=== PATIENT | female | born 1940 | race Caucasian/White ===

== ENCOUNTER 2018-02-17 22:35 | Inpatient (IN) | payer OTHER ==
[~2018-02-17] VITALS: Ht 157.5 cm; Wt 68.5 kg
[~2018-02-17 22:35] MED LIST: ARICEPT 5 MG TAB5 MG PO; ASPIRIN EC81 M1 PO; GLUCOPHAGE1000 MG PO; GLUCOTROL10 MG PO; LANTUS SUBQ; LEVAQUIN 500 M500 M2 PO; LEVAQUIN 500 M500 MG PO; LOPRESSOR25 PO; MOBIC15 MG PO; NORCO 5-325 TA1 EACH PO; PRAVACHOL 20 MG20 M1 PO; TOPROL XL50 MG PO; TRIAMTERENE-HC1 EAC1 PO
[2018-02-17 22:38] VITALS: BP 115/67
[2018-02-17 22:56] LABS: ABSOLUTE BASOPHILS 0.1 thou/uL (0.0-0.2); ABSOLUTE EOSINOPHILS 0.2 thou/uL (0.0-0.7); ABSOLUTE LYMPHOCYTES 2.4 thou/uL (0.8-5.3); ABSOLUTE MONOCYTES 0.8 thou/uL (0.0-1.2); ABSOLUTE NEUTROPHILS 8.5 thou/uL (1.6-8.1); BASOPHILS 0.9 %; EOSINOPHILS 1.3 %; HEMOGLOBIN 13.9 gm/dL (12.0-15.0); LYMPHOCYTES 19.7 %; MCH 28.6 pg (26.0-34.0); MCHC 33.1 g/dL (28.0-37.0); MCV 86.3 fL (80.0-100.0); MPV 9.3 fl. (7.2-11.1); NUCLEATED RBCS 0 /100WBC; PLATELET COUNT* 200 thou/uL (150-400); POLYS 71.1 %; RBC 4.87 mil/uL (4.20-5.00); RDW-CV 15.7 % (10.5-14.5)
[2018-02-17 23:07] LABS: APTT 23.2 Seconds (25.0-31.3); PROTIME 10.2 Seconds (9.20-11.50)
[2018-02-17 23:12] LABS: ANION GAP 12 mmol/L (7-16); BUN 35 mg/dL (7-18); CHLORIDE 98 mmol/L (98-107); CO2 25 mmol/L (21-32); CREATININE 1.8 mg/dL (0.6-1.3); GLUCOSE 415 mg/dL (70-99); POTASSIUM 4.9 mmol/L (3.5-5.1); SODIUM 135 mmol/L (136-145)
[2018-02-17 23:16] LABS: ALBUMIN 3.3 g/dL (3.4-5.0); ALKALINE PHOSPHATASE 99 U/L (46-116); SGOT 20 U/L (15-37); SGPT 22 U/L (30-65); TOTAL BILIRUBIN 0.6 mg/dL (<0.1-1.0); TOTAL PROTEIN 7.7 g/dL (6.4-8.2); TROPONIN-I LEVEL <0.06 ng/mL (<0.06)
[2018-02-17 23:45] LABS: URINE BILIRUBIN NEGATIVE (Negative); URINE BLOOD 3+ (Negative); URINE CLARITY CLEAR; URINE COLOR YELLOW; URINE GLUCOSE-RANDOM 3+ (Negative); URINE KETONES NEGATIVE (Negative); URINE LEUKOCYTES-REFLEX 1+ (Negative); URINE NITRITE-REFLEX NEGATIVE (Negative); URINE PROTEIN TRACE (Negative); URINE UROBILINOGEN 0.2 E.U./dl (0.2-1.0)
[2018-02-17 23:52] LABS: BACTERIA-REFLEX >30 Many /HPF (None Seen); CASTS None Seen /LPF (None Seen); CRYSTALS None Seen /LPF (None Seen); MUCUS 4-6 Moderate strn/LPF (None Seen); SQUAMOUS 0-3 Few /LPF (0-3); TRANSITIONAL EPITHEL CELL 0-3 Few /LPF (None Seen); URINE RBC >20 Many /HPF (0-2); URINE WBC-REFLEX >25 Many /HPF (0-5); WBC CLUMPS Moderate (None Seen)
[2018-02-18 01:06] VITALS: BP 141/78
[2018-02-18 03:05] VITALS: BP 137/68
[2018-02-18] MEDS ORDERED: LANTUS100 UNIT/M SUBQ (03:35)
[2018-02-18] MEDS ORDERED: LIPITOR10 MG PO (03:36)
[2018-02-18] MEDS ORDERED: ZOLOFT50 MG PO (03:36)
--- NOTE | 2018-02-18 05:34 | NUR ---
PT ADMITTED TO UNIT FROM ED. PT ORIENTED TO ROOM, CALL LIGHT SHOWN, FALL AGREEMENT SIGNED. PT STATED UNDERSTANDING. ASSESSMENT DOCUMENTED. MEDS GIVEN PER E-MAR. MED LIST UPDATED. WOUNDS CLEANED, PICTURED TAKEN. NEW IV STARTED PER PT AND PT'S DAUGHTERS REQUEST. PT'S DAUGHTER ASKING ABOUT REHAB FOR PATIENT UNTIL PT COULD GO TO LIVING IN AN APARTMENT WITH ASSISTANCE. PT REPORTS PAIN IN HER LEFT KNEE, IBPROFEN GIVEN WITH RELIEF. PT A&OX4 BUT FORGETFUL. WILL CONTINUE WITH PLAN OF CARE.
[2018-02-18 08:45] VITALS: BP 128/78
--- NOTE | 2018-02-18 11:33 | EKG ---
[place] [address] ELECTROCARDIOGRAM REPORT Name: JEANINE ANDRADE Room: [address] ADM IN .R.#: [id number] Admission: 02/17/18 Attend Phys: Lizy Malcolm MD Discharge: Date of : 40 Report #: [id number] THIS REPORT FOR: //name// [facility] ED Test Date: 2018-02-17 Test Time: 23:20:19 Pat Name: JEANINE TRACYJAYDE Department: Room: [facility] Gender: F Mailroom Manager: TLD : 1940 Requested By: Christiano Murry Order Number: [id number] MD: Luc Wong Measurements Intervals [place] Rate: 75 P: 19 LA: 192 QRS: -53 QRSD: 136 T: 69 QT: 414 QTc: 463 Interpretive Statements Sinus rhythm Right bundle branch block Inferior infarct, age indeterminate Compared to ECG 09/14/2017 11:49:02 Myocardial infarct finding now present ST (T wave) deviation now present Left anterior fascicular block no longer present Electronically Signed On 02-18-2018 11:32:37 CDT by Luc Wong [email or web address] <ELECTRONICALLY SIGNED> By: Luc Wong MD, FACC 02/18/18 1132 2320 2320 Luc Wong MD, FAC /EPI
[2018-02-18] MEDS ORDERED: GLIPIZIDE 10 MG10 MG PO (12:55)
--- NOTE | 2018-02-18 16:22 | NUR ---
PATIENT SITTING UP IN CHAIR MOST OF THE SHIFT. DR. HI NOTIFIED THIS AM OF LEFT KNEE PAIN, XRAY NEGATIVE. PRN TRAMADOL GIVEN WITH GOOD RELIEF NOTED. HEATING PAD TO LEFT KNEE. IVF INFUSING, SCHED ABX AT HS. DR. HI NOTIFIED THAT PATIENT BLOOD SUGAR ELEVATED, SLIDING SCALE INSULIN ORDERED AND STARTED THIS AFTERNOON. PATIENTS DAUGHTER DISCUSSING DISCHARGE PLANNING WITH CM. PATIENT TRANSFERRED THIS EVENING TO ROOM 105. REPORT GIVEN TO NILDA CHACON.
--- NOTE | 2018-02-18 17:19 | NUR ---
JAZZMINE met with Ave Varela from [facility] [phone] who was following up as the pt was hotlined a second time upon admission to the hospital by the EMS team. Ave hopeful pt will have a safer dc plan for pt to go to SNF or [facility] and wanted a call upon pt dc as to the dc disposition. JAZZMINE met with pt dtr Emily (ph [phone]) and discussed pt was home alone and Emily has been trying to find an HALFWAY for her mother but was not able to find any assistance in the transition. JAZZMINE provided referral to [facility] and discussed SW could send referral to SNF if pt would qualify for SNF as an option for more time to secure an HALFWAY. Emily spoke with Mandie from [facility] and Emily said that they were going to tour places and decide hopefully this weekend what SNF is preference and then for longer term, what HALFWAY. Pt has history of HH with [facility], SNF at [facility]. Pt has a RW. JAZZMINE to continue to follow to assist with safe dc planning.
--- NOTE | 2018-02-18 18:48 | NUR ---
ASSUMED CARE THIS AFTERNOON, SPEECH THERAPY TO PROVIDE SERVICES FOR COGNITION. LEFT LOWER LIP SWOLLEN, CONT TO C/O LEFT KNEE PAIN, XRAY NEGATIVE. CRIS DIET WELL, UP TO CHAIR FOR MEALS, CALL LIGHT IN REACH, CONT POC.
[2018-02-18 20:30] VITALS: BP 97/55
[2018-02-19 04:11] LABS: HEMATOCRIT 35.1 % (37.0-47.0); MCH 28.8 pg (26.0-34.0); MCV 84.7 fL (80.0-100.0); MPV 8.9 fl. (7.2-11.1); RBC 4.15 mil/uL (4.20-5.00); RDW-CV 15.5 % (10.5-14.5); WBC 8.8 thou/uL (4.0-11.0)
[2018-02-19 04:21] LABS: CALCIUM 8.8 mg/dL (8.5-10.1); CREATININE 1.6 mg/dL (0.6-1.3); MAGNESIUM 1.8 mg/dL (1.8-2.4); POTASSIUM 4.7 mmol/L (3.5-5.1)
[2018-02-19 04:31] LABS: HEMOGLOBIN 11.9 gm/dL (12.0-15.0)
--- NOTE | 2018-02-19 06:17 | NUR ---
PT SLEPT AT INTERVALS DURING THE NIGHT, PLEASANT, ALERT AND ORIENTED, CONFUSED ABOUT TIME ON OCCASION, UP WITH ASSIST TO THE BSC, IV FLUIDS INFUSED, NOW SALINE LOCKED, PAIN IN LEFT KNEE, PRN PAIN MED PER REQUEST, CALL LIGHT IN REACH, BED ALARM ON FOR SAFETY, WILL CONTINUE TO MONITOR
[2018-02-19 08:00] VITALS: BP 106/68
[2018-02-19 16:07] VITALS: BP 104/63
--- NOTE | 2018-02-19 18:50 | NUR ---
RESUMED CARE THIS AM. DISCOMFORT MANAGED WELL WITH ORAL MEDICATION, PROGRESSING WELL WITH THERAPY, UP WITH MIN ASSIST TO BSC, CRIS DIET WELL, GLUCOSE MANAGED WELL WITH DIET AND INSULIN. NO ACUTE DISTRESS, DISCHARGE GOAL OF ASSISTED LIVING, PROGRESSING WELL TOWARD GOALS, A/O, COMPLIANT WITH CARE, CALL LIGHT IN REACH, BED ALARM ON, CONT POC.
[2018-02-19 23:49] VITALS: BP 125/58
[2018-02-19 23:58] VITALS: BP 125/58
[2018-02-20 03:43] LABS: HEMATOCRIT 35.7 % (37.0-47.0); HEMOGLOBIN 12.2 gm/dL (12.0-15.0); MCH 28.8 pg (26.0-34.0); MCHC 34.2 g/dL (28.0-37.0); MCV 84.2 fL (80.0-100.0); MPV 9.5 fl. (7.2-11.1); RBC 4.24 mil/uL (4.20-5.00); RDW-CV 15.3 % (10.5-14.5); WBC 9.3 thou/uL (4.0-11.0)
[2018-02-20 03:45] LABS: CALCIUM 9.3 mg/dL (8.5-10.1); CREATININE 1.4 mg/dL (0.6-1.3); MAGNESIUM 1.9 mg/dL (1.8-2.4); POTASSIUM 4.4 mmol/L (3.5-5.1)
--- NOTE | 2018-02-20 04:41 | NUR ---
PATIENT HAS REMAINED ALERT AND ORIENTED X 4. SLIGHTLY FORGETFUL AND IMPULSIVE AT TIMES. BED ALARM ON FOR SAFETY. TRANSFERING WITH GAIT BELT AND WALKER. STAND PIVOT FROM BED TO BSC AND BACK. HEAT PAD TO LEFT KNEE ON CYCLES OVERNIGHT. NO ORAL PAIN MEDICATION REQUIRED. VITAL SIGNS STABLE. MEDS/ANTIBIOTIC PER ORDERS. CONTINUE TO MONITOR.
[2018-02-20 08:00] VITALS: BP 132/64
[2018-02-20 16:10] VITALS: BP 118/64
--- NOTE | 2018-02-20 18:47 | NUR ---
RESUMED CARE THIS AM, DECLINES PAIN MEDICATION, UP WITH SBA OF ONE TO TOILET, DOES PRESENT SLIGHTLY MORE CONFUSED THIS AM. ENJOYS WATCHING BASEBALL, CONTINUES WITH HEATING PAD TO LEFT KNEE, GLUCOSE MANAGED WELL WITH INSULIN AND ORAL MEDS, NO DISTRESS NOTED, PLEASANT AFFECT, CONT WITH DISCHARGE GOAL FOR SKILLED UNIT, FOLLOWED BY ASSISTED LIVING.
[2018-02-21 00:38] VITALS: BP 104/55
--- NOTE | 2018-02-21 04:38 | NUR ---
PATIENT ALERT AND ORIENTED X 3 THROUGHOUT THE SHIFT. FORGETFUL AT TIMES AND ALSO AT TIMES POOR PROBLEM SOLVING AND SAFETY SKILLS. BED ALARM ON. MEDICATED FOR LEFT KNEE PAIN X 1. HEAT PAD ON AT INTERVALS. UP TO BR WITH WALKER, GAIT BELT AND MIN ASSIST. STRESS INCONT OF URINE. MOD BM THIS SHIFT. VITAL SIGNS STABLE. CONTINUE TO MONITOR.
[2018-02-21 05:04] LABS: CALCIUM 9.4 mg/dL (8.5-10.1); CREATININE 1.6 mg/dL (0.6-1.3); POTASSIUM 4.5 mmol/L (3.5-5.1)
[2018-02-21 07:45] VITALS: BP 99/63
--- NOTE | 2018-02-21 12:11 | NUR ---
SW received call from Emily, pt dtr, to discuss safe dc planning. Pt dtr has a meeting with Mandie from [facility] tomorrow, Wednesday at 10 am and wondered if SW could meet as well. SW explained that SW could try to meet at that time or if not, could definitely speak with pt dtr to follow up. Pt dtr preferences for SNF first [facility] then [facility] and then [facility] if needed. SW faxed referrals to SNFs. Cristy from [facility] called SW and left message that they could accept pt but pending insurance authorization and needed updated OT notes. JAZZMINE spoke with Faiza about receiving OT notes and SW to fax as soon as available. JAZZMINE called pt dtr Emily to provide update of information from facilities and possible dc for later today pending insurance authorization. SW to continue to follow to assist with finalizing safe dc plan.
[2018-02-21 14:40] VITALS: BP 99/63
[2018-02-21 14:43] VITALS: BP 99/63
[2018-02-21 15:01] VITALS: BP 99/63
[2018-02-21] MEDS ORDERED: TRAMADOL 50 MG50 MG PO (15:01)
--- NOTE | 2018-02-21 19:17 | NUR ---
PATIENT LEFT UNIT AT 1630. ALERT AND ORIENTED X4. UP STAND BY ASSIST TO BATHROOM. IV DC'D. PAIN MANAGED WITH PO MEDICATION. DENIES NAUSEA. TOLERATING DIET. ATTENDED PT/OT THIS SHIFT. ALL PERSONAL ITEMS LEFT WITH PATIENT. DISCHARGE INSTRUCTIONS AND PRESCRIPTIONS SENT TO SKILLED FACILITY. VSS ON ROOM AIR. HOURLY ROUNDS HAVE BEEN MAINTAINED THROUGHOUT SHIFT. LEFT WITH TRANSPORTER VIA WHEEL CHAIR VAN.
[2018-02-21 19:19] VITALS: BP 99/63
== END 2018-02-21 16:00 | DRG 682 ==
LOC: M.ERS 22:35 → M.3W 23:58 → M.TBA-ER 23:58 → M.3W 02-18 01:00 → M.ORTHSURG 02-18 15:44
PROVIDERS: Family Medicine; Internal Medicine; ADMIT Internal Medicine
DX: N17.0 Acute kidney failure with tubular necrosis (principal); G92 Toxic encephalopathy; N39.0 Urinary tract infection, site not specified; R65.10 Systemic inflammatory response syndrome (SIRS) of non-infectious origin without acute organ dysfunction; F03.90 Unspecified dementia, unspecified severity, without behavioral disturbance, psychotic disturbance, mood disturbance, and anxiety; I25.10 Atherosclerotic heart disease of native coronary artery without angina pectoris; E11.51 Type 2 diabetes mellitus with diabetic peripheral angiopathy without gangrene; N18.3 Chronic kidney disease, stage 3 (moderate); Z96.651 Presence of right artificial knee joint; I10 Essential (primary) hypertension; B37.9 Candidiasis, unspecified; Z66 Do not resuscitate; Z79.82 Long term (current) use of aspirin; Z79.4 Long term (current) use of insulin; Z95.5 Presence of coronary angioplasty implant and graft; Z90.49 Acquired absence of other specified parts of digestive tract

== ENCOUNTER 2018-12-26 21:01 | Inpatient (IN) | payer OTHER ==
[~2018-12-26] VITALS: Ht 157.5 cm; Wt 68.9 kg
[~2018-12-26 21:01] MED LIST changes: +GLIPIZIDE 10 MG10 MG PO; +LANTUS100 UNIT/M SUBQ; +LIPITOR10 MG PO; +TRAMADOL 50 MG50 MG PO; +ZOLOFT50 MG PO
[2018-12-26 21:13] VITALS: BP 153/83
[2018-12-26 22:09] LABS: URINE BILIRUBIN NEGATIVE (Negative); URINE BLOOD 1+ (Negative); URINE CLARITY CLEAR; URINE COLOR YELLOW; URINE GLUCOSE-RANDOM 3+ (Negative); URINE KETONES NEGATIVE (Negative); URINE LEUKOCYTES-REFLEX 2+ (Negative); URINE NITRITE-REFLEX NEGATIVE (Negative); URINE PROTEIN TRACE (Negative); URINE SPECIFIC GRAVITY <= 1.005 (1.005-1.030); URINE UROBILINOGEN 0.2 E.U./dl (0.2-1.0)
[2018-12-26 22:23] LABS: CASTS None Seen /LPF (None Seen); SQUAMOUS 4-10 Moderate /LPF (0-3)
[2018-12-26 22:24] LABS: URINE RBC None Seen /HPF (0-2); URINE WBC-REFLEX >25 Many /HPF (0-5); WBC CLUMPS Moderate (None Seen)
[2018-12-26 22:25] LABS: CRYSTALS None Seen /LPF (None Seen)
[2018-12-26 22:43] LABS: ABSOLUTE BASOPHILS 0.1 thou/uL (0.0-0.2); ABSOLUTE EOSINOPHILS 0.1 thou/uL (0.0-0.7); ABSOLUTE LYMPHOCYTES 1.5 thou/uL (0.8-5.3); ABSOLUTE MONOCYTES 0.9 thou/uL (0.0-1.2); ABSOLUTE NEUTROPHILS 5.9 thou/uL (1.6-8.1); EOSINOPHILS 1.5 %; HEMATOCRIT 36.9 % (37.0-47.0); LYMPHOCYTES 17.6 %; MCH 27.7 pg (26.0-34.0); MCHC 32.6 g/dL (28.0-37.0); MCV 85.2 fL (80.0-100.0); MONOCYTES 10.5 %; MPV 8.9 fl. (7.2-11.1); NUCLEATED RBCS 0 /100WBC; PLATELET COUNT* 176 thou/uL (150-400); POLYS 69.4 %; RBC 4.33 mil/uL (4.20-5.00); RDW-CV 18.5 % (10.5-14.5); WBC 8.6 thou/uL (4.0-11.0)
[2018-12-26 23:00] LABS: ANION GAP 7 mmol/L (7-16); BUN 23 mg/dL (7-18); CALCIUM 9.8 mg/dL (8.5-10.1); CHLORIDE 97 mmol/L (98-107); CO2 26 mmol/L (21-32); CREATININE 1.7 mg/dL (0.6-1.3); GLUCOSE 342 mg/dL (70-99); POTASSIUM 4.5 mmol/L (3.5-5.1); SODIUM 130 mmol/L (136-145); TROPONIN-I LEVEL <0.06 ng/mL (<0.06)
[2018-12-26 23:02] LABS: ALBUMIN 3.2 g/dL (3.4-5.0); ALKALINE PHOSPHATASE 126 U/L (46-116); NT-PRO BRAIN NAT PEPTIDE 766 pg/mL (<300); SGOT 28 U/L (15-37); SGPT 26 U/L (30-65); TOTAL BILIRUBIN 0.5 mg/dL (<0.1-1.0); TOTAL PROTEIN 7.2 g/dL (6.4-8.2)
[2018-12-27 06:41] VITALS: BP 104/64
[2018-12-27 07:24] VITALS: BP 104/67
[2018-12-27 08:00] VITALS: BP 157/81
--- NOTE | 2018-12-27 12:54 | EKG ---
[place] [address] ELECTROCARDIOGRAM REPORT Name: JEANINE ANDRADE Room: [address] ADM IN .R.#: [id number] Admission: 12/26/18 Attend Phys: Khai Carlson MD Discharge: Date of : 40 Report #: [id number] THIS REPORT FOR: //name// [facility] ED Test Date: 2018-12-26 Test Time: 22:05:26 Pat Name: JEANINE ANDRADE Department: Room: [facility] Gender: F Pharmaceutical Development Technician: : 1940 Requested By: Alina Brand Order Number: [id number] MD: Bradley Mcneal Measurements Intervals [place] Rate: 77 P: -19 MA: 205 QRS: -50 QRSD: 136 T: 46 QT: 417 QTc: 472 Interpretive Statements Sinus rhythm RBBB and LAFB Probable left ventricular hypertrophy Anterior Q waves, possibly due to LVH Compared to ECG 02/17/2018 23:20:19 Left anterior fascicular block now present Left ventricular hypertrophy now present Q waves now present Left ventricular hypertrophy now present Myocardial infarct finding no longer present Electronically Signed On 12-27-2018 12:54:42 PHOTOGRAPH RETOUCHER by Bradley Mcneal [email or web address] <ELECTRONICALLY SIGNED> By: Bradley Mcneal MD, [facility] 12/27/18 1254 220 Bradley Mcneal MD, [facility] /EPI
[2018-12-27 16:00] VITALS: BP 162/75
[2018-12-27 20:50] VITALS: BP 144/77
[2018-12-28 04:25] LABS: ABSOLUTE EOSINOPHILS 0.2 thou/uL (0.0-0.7); ABSOLUTE LYMPHOCYTES 1.8 thou/uL (0.8-5.3); ABSOLUTE MONOCYTES 0.8 thou/uL (0.0-1.2); ABSOLUTE NEUTROPHILS 4.2 thou/uL (1.6-8.1); BASOPHILS 0.6 %; EOSINOPHILS 2.6 %; HEMATOCRIT 33.3 % (37.0-47.0); LYMPHOCYTES 25.4 %; MCHC 33.1 g/dL (28.0-37.0); MCV 84.6 fL (80.0-100.0); MONOCYTES 11.4 %; MPV 9.2 fl. (7.2-11.1); NUCLEATED RBCS 0 /100WBC; PLATELET COUNT* 148 thou/uL (150-400); RBC 3.93 mil/uL (4.20-5.00); RDW-CV 18.3 % (10.5-14.5)
[2018-12-28 04:28] LABS: CALCIUM 9.1 mg/dL (8.5-10.1); CREATININE 1.4 mg/dL (0.6-1.3); POTASSIUM 4.3 mmol/L (3.5-5.1)
[2018-12-28 07:30] VITALS: BP 122/62
[2018-12-28 16:35] VITALS: BP 133/62
[2018-12-28 16:36] VITALS: BP 133/62
[2018-12-28 21:00] VITALS: BP 136/86
[2018-12-29 04:00] VITALS: BP 148/75
[2018-12-29 05:50] LABS: CALCIUM 9.1 mg/dL (8.5-10.1); CREATININE 1.4 mg/dL (0.6-1.3); MAGNESIUM 2.1 mg/dL (1.8-2.4); POTASSIUM 4.5 mmol/L (3.5-5.1)
[2018-12-29] MEDS ORDERED: PROBIOTIC1 EAC1 PO (07:42)
[2018-12-29] MEDS ORDERED: CEFUROXIME250 MG PO (07:42)
[2018-12-29 07:45] VITALS: BP 127/73
[2018-12-29 15:49] VITALS: BP 127/73
[2018-12-29 15:57] VITALS: BP 127/73
[2018-12-29 18:07] VITALS: BP 127/73
== END 2018-12-29 17:15 | disposition home health service (06) | DRG 682 ==
LOC: M.ERS 21:01 → M.TBA-ER 22:46 → M.ORTHSURG 22:46
PROVIDERS: Emergency Medicine; Internal Medicine; ADMIT Family Medicine
DX: N17.9 Acute kidney failure, unspecified (principal); G93.41 Metabolic encephalopathy; N30.91 Cystitis, unspecified with hematuria; I25.10 Atherosclerotic heart disease of native coronary artery without angina pectoris; F03.90 Unspecified dementia, unspecified severity, without behavioral disturbance, psychotic disturbance, mood disturbance, and anxiety; N18.3 Chronic kidney disease, stage 3 (moderate); E11.51 Type 2 diabetes mellitus with diabetic peripheral angiopathy without gangrene; Z96.651 Presence of right artificial knee joint; E11.22 Type 2 diabetes mellitus with diabetic chronic kidney disease; Z79.82 Long term (current) use of aspirin; Z79.899 Other long term (current) drug therapy; Z79.4 Long term (current) use of insulin; Z90.49 Acquired absence of other specified parts of digestive tract; Z87.891 Personal history of nicotine dependence